=== PATIENT | male | born 1955 | race Two or more races ===

== ENCOUNTER 2023-08-19 14:19 | Emergency (ER) | payer MEDICARE, OTHER ==
[~2023-08-19] VITALS: Ht 182.9 cm; Wt 83.9 kg
[2023-08-19 14:21] VITALS: BP 132/77; TEMP 98.1
[2023-08-19] MEDS ORDERED: CLIN300C12 PO (14:47)
[2023-08-19 14:57] VITALS: O2SAT 100
== END 2023-08-19 14:59 | disposition home or self-care (01) ==
LOC: ER 14:30
DX: L03.116 Cellulitis of left lower limb (principal); Z60.2 Problems related to living alone